=== PATIENT | male | born 1990 | race Caucasian/White ===

== ENCOUNTER 2019-02-14 07:38 | Emergency (ER) | payer SELFPAY ==
[2019-02-14 08:18] VITALS: BP 154/82
[2019-02-14] MEDS ORDERED: Tetan/Diph/Pertus SYR(Tdap)* 0.5 ML SYR(BOOSTRIX) use SYR contains LATEX IM ONE (08:36)
[2019-02-14] MEDS ORDERED: Lidocaine 1% MPF ** 5 ML VIAL INJ ONE (08:36)
--- NOTE | 2019-02-14 09:23 | UC ---
Laceration HPI - HPI Summary HPI Summary: 29 year old with no PMH presents with L upper lip laceration after hitting herself in the lip with a drill. No teeth injury, no neck pain, no head injury , LOC. no prior injury, bleeding controlled. work comp injury. - History Of Current Complaint Chief Complaint: UCLaceration Stated Complaint: WC-LIP LACERATION Time Seen by Provider: 02/14/19 08:32 Hx Obtained From: Patient Laceration Location: Face - left upper lip Onset/Duration: Sudden Onset Severity: Mild Pain Intensity: 0 Pain Scale Used: 0-10 Numeric - Allergies/Home Medications Allergies/Adverse Reactions: Allergies Allergy/AdvReac Type Severity Reaction Status Date / Time No Known Allergies Allergy Verified 02/14/19 08:12 Home Medications: Home Medications Acetaminophen 4 tab PO ONCE PRN 02/14/19 [History Confirmed 02/14/19] PMH/Surg Hx/FS Hx/Imm Hx Previously Healthy: Yes - Surgical History Surgical History: None - Family History Known Family History: Positive: Non-Contributory - Social History Occupation: Employed Full-time Alcohol Use: None Substance Use Type: None Smoking Status (MU): Former Smoker When Did the Patient Quit Smoking/Using Tobacco: 2010 - Immunization History Most Recent Tetanus Shot: 2011 Review of Systems All Other Systems Reviewed And Are Negative: Yes Constitutional: Negative: Fever, Chills, Fatigue Skin: Positive: Other - laceration left upper lip ENT: Negative: Epistaxis, Dental Pain, Sore Throat, Ear Ache, Nasal Discharge, Sinus Congestion, Sinus Pain/Tenderness Respiratory: Negative: Shortness Of Breath, Cough Is Patient Immunocompromised?: No Physical Exam Triage Information Reviewed: Yes Appearance: Well-Appearing, No Pain Distress, Well-Nourished Vital Signs: Initial Vital Signs Temp 98.1 F 02/14/19 08:13 Pulse 82 02/14/19 08:13 Resp 16 02/14/19 08:13 BP 154/82 02/14/19 08:13 Pulse Ox 100 02/14/19 08:13 Vital Signs Reviewed: Yes Eyes: Positive: Conjunctiva Clear ENT: Positive: Hearing grossly normal, Pharynx normal, Uvula midline. Negative : Pharyngeal erythema, Tonsillar swelling, Tonsillar exudate, Sinus tenderness Neck: Positive: Supple, Nontender, No Lymphadenopathy. Negative: Nuchal Rigidity, Enlarged Nodes @ Neurological Exam: Normal Psychological Exam: Normal Skin: Positive: Other - ! 1.5cm full thickness laceration, not involving soco border, CN grossly intact, smile/ frown intact against resistence, no dental involvement seen. minimal swelling. Laceration Repair - Laceration Repair 1 Procedure Summary: left upper lip anes with 1 % lidocaine, 2.5cc without difficulty after time out. lip with 3 non-absorbable sutures, inner mucosa with 2 absoreable sutures , no complications, no debridment. approximately well. Description: Linear Laceration Size After Repair: Length (cm) - 1.5cm Modified For Repair: Yes Type Injection: Local Anesthesia Used: 1.0% Lido Cleansing Completed Via Routine Prep: Yes Irrigation With Pressure Irrigation Device: Yes Closure Material: Sutures - 3 non-absorbable on lip, 2 absorbable in mucosa Suture Of: Skin Suture Type: Nylon, Vicryl Laceration Course/Dx - Course/Dx Course Of Treatment: Lip Laceration: - Three sutures on outside to be removed within 5-6 days, 2 absorable sutures on inside to be removed - Return with increased swelling, drainage, redness, pain - Keep are clean, dry as much as possible, wash off after eating to avoid infection - Differential Dx - Laceration/Wound Differental Diagnoses: Laceration - Diagnosis Provider Diagnosis: Laceration of lip Discharge ED - Sign-Out/Discharge Documenting (check all that apply): Patient Departure All imaging exams completed and their final reports reviewed: No Studies - Discharge Plan Condition: Good Disposition: HOME Patient Education Materials: Care For Your Stitches (ED), Care For Your Absorbable Stitches (ED) Forms: *Work Release Referrals: No Primary Care Phys,NOPCP [Primary Care Provider] - Additional Instructions: Lip Laceration: - Three sutures on outside to be removed within 5-6 days, 2 absorable sutures on inside to be removed - Return with increased swelling, drainage, redness, pain - Keep are clean, dry as much as possible, wash off after eating to avoid infection - Billing Disposition and Condition Condition: GOOD Disposition: Home
== END 2019-02-14 09:22 | disposition home or self-care (01) ==
LOC: UCCORT 07:38
DX: S01.511A Laceration without foreign body of lip, initial encounter (principal); W22.8XXA Striking against or struck by other objects, initial encounter; Y92.9 Unspecified place or not applicable; Y99.0 Civilian activity done for income or pay; Z87.891 Personal history of nicotine dependence; Z23 Encounter for immunization
CPT/HCPCS: 12001; 12011; 90715; 99202; G0463